=== PATIENT | female | born 1975 | race Two or more races ===

== ENCOUNTER 2021-01-20 11:27 | Outpatient (CLI) | payer OTHER | END 2021-01-20 11:40 | disposition home or self-care (01) | LOC: SONOGRAMA 11:27 | PROVIDERS: ATTEND Specialist | DX: M79.9 Soft tissue disorder, unspecified (principal) ==

== ENCOUNTER → 2024-10-15 | Emergency (ER) | payer OTHER ==
[~2024-10-15] VITALS: Ht 167.6 cm; Wt 86.2 kg
[2024-10-15 13:48] LABS: BASO % 0.7 % (0.1-1.2); EOS # 0.09 (0.04-0.54); EOS % 0.9 % (0.7-7.0); LYMPH # 2.85 (1.18-3.74); LYMPH % 29.4 % (19.3-53.1); MEAN PLATELET VOLUME 9.90 fl (9.4-12.4); MONO # 0.60 (0.24-0.82); MONO % 6.2 % (4.7-12.5); NEUT # 6.03 (1.56-6.13); NEUT % 62.3 % (34.0-71.1); RED CELL DISTRIBUTION WIDTH 12.9 % (11.6-14.4)
[2024-10-15 14:12] LABS: ALT/SGPT 45.0 U/L (12-78); AST/SGOT 67.0 U/L (15-37); BILIRUBIN TOTAL 0.37 mg/dL (0.3-1.2); BUN CREA RATIO 16.0 (7.0-25.0); CREATININE SERUM 0.91 mg/dL (0.55-1.02); GFR 65.7; GLOBULINA 4.3 G/DL (2.4-3.5); GLUCOSE FASTING 93.0 mg/dL (65-100); OSMOLALITY SERUM 280.0 MOSM/KG (275-295)
== END | disposition home or self-care (01) ==
LOC: ER 10:41
PROVIDERS: Preventive Medicine Public Health & General Preventive Medicine
DX: R42 Dizziness and giddiness (principal); E16.2 Hypoglycemia, unspecified